=== PATIENT | female | born 1975 | race American Indian/Alaskan Native ===

== ENCOUNTER 2020-11-06 16:19 | Emergency (ER) | payer SELFPAY ==
[2020-11-06 16:28] VITALS: BP 135/95
--- NOTE | 2020-11-06 16:30 | Event Note ---
ED Screening Note Date of service: 11/06/20 Time: 16:30 ED Screening Note: Complains of worsening shortness of breath since being diagnosed with Covid Symptoms started 1 week ago per patient Tested for Covid on Sunday This initial assessment/diagnostic orders/clinical plan/treatment(s) is/are subject to change based on patients health status, clinical progression and re- assessment by fellow clinical providers in the ED. Further treatment and workup at subsequent clinical providers discretion. Patient/guardian urged not to elope from the ED as their condition may be serious if not clinically assessed and managed. Initial orders include: Labs Chest x-ray
[2020-11-06 17:11] LABS: Basophils % (Auto) 0.5 % (0.0-1.8); Hematocrit 45.8 % (30.3-42.9); Lymphocytes # (Auto) 1.8 K/mm3 (1.2-5.4); Lymphocytes % (Auto) 25.6 % (13.4-35.0); Mean Corpuscular HGB Conc 33 % (30-34); Mean Corpuscular Volume 81 fl (79-97); Monocytes # (Auto) 0.4 K/mm3 (0.0-0.8); Monocytes % (Auto) 5.8 % (0.0-7.3); Platelet Count 272 K/mm3 (140-440); Red Blood Count 5.65 M/mm3 (3.65-5.03); Red Cell Distribution Width 13.5 % (13.2-15.2)
[2020-11-06 17:32] LABS: Alanine Aminotransferase 89 units/L (7-56); Albumin 4.3 g/dL (3.9-5); Blood Urea Nitrogen 8 mg/dL (7-17); Calcium 9.6 mg/dL (8.4-10.2); Hemolysis Index 7
[2020-11-06 17:43] LABS: BUN/Creatinine Ratio 13
--- NOTE | 2020-11-06 18:10 | XRay Report ---
CHEST 2 VIEWS INDICATION: SOB, +covid. COMPARISON: None FINDINGS: Support devices: None. Heart: Within normal limits. Lungs: Multifocal patchy parenchymal changes are present both lungs. Pleura: No significant pleural effusion. No pneumothorax. Additional findings: None. IMPRESSION: 1. Multifocal airspace disease, pneumonia is a concern Signer Name: Mika Matos MD Signed: 11/06/2020 6:05 PM Workstation Name: [id number]
--- NOTE | 2020-11-07 01:23 | Emergency Department Report ---
ED Shortness of Breath HPI - General Chief Complaint: Dyspnea/Respdistress Stated Complaint: COVID + SOB Time Seen by Provider: 11/06/20 16:28 Source: patient Mode of arrival: Ambulatory Limitations: No Limitations - History of Present Illness Initial Comments: Patient is a 45-year-old -[place] female with a history of lcm-zkcohwh-kjgyxhkyu diabetes, asthma and hypertension who presents to the ED with complaint of acute onset persistent shortness of breath, nasal and sinus congestion, persistent dry cough with wheezing and chest tightness for the last 1 week. Patient states that she was diagnosed with COVID-19 viral infection 4 days ago and that initially her symptoms were mild but in the last 2 days, the shortness of breath has worsened especially when she lays down. Patient states that prior to arrival in the ED her shortness of breath was worse and the wheezing was constant especially with exertion. Patient states that she has not taken any medication at home but qikv-hcq-jssfjkp multivitamins. Patient denies chest pain, nausea, vomiting, diarrhea, abdominal pain, fever, chills, sore throat, lack of appetite, loss of taste or smell, dysuria, urinary frequency and urgency or change in vision, syncope or seizures. MD Complaint: shortness of breath, cough -: Sudden, week(s) (1) Radiation: other (none) Severity: severe Pain Scale: 2 Quality: dull, other (tightness of chest) Consistency: intermittent Improves With: nothing Worsens With: lying flat, exertion Known History Of: asthma, other (Covid-19 viral infection diagnosis recently) Context: recent URI, other (Covid-19 viral infection diagnosis) Associated Symptoms: denies other symptoms, cough, other (dyspnea) Treatments Prior to Arrival: none - Related Data Home Oxygen Therapy: No Previous Rx's Medication Instructions Recorded Last Taken Type Acetaminophen [Tylenol] 500 mg PO Q6HR PRN #30 tablet 11/07/20 Unknown Rx Albuterol Sulfate [Proventil Hfa] 1 - 2 puff IH Q6H PRN #1 hfa.aer.ad 11/07/20 Unknown Rx Azithromycin [Zithromax Z-KYMBERLY] 250 mg PO DAILY #6 tablet 11/07/20 Unknown Rx Benzonatate [Tessalon Perles] 100 mg PO Q8HR #30 capsule 11/07/20 Unknown Rx Cetirizine HCl [Zyrtec 10mg tab] 10 mg PO DAILY #30 tablet 11/07/20 Unknown Rx Dexamethasone 6 mg PO BID #10 tablet 11/07/20 Unknown Rx Allergies Allergy/AdvReac Type Severity Reaction Status Date / Time Penicillins Allergy Itching Verified 11/06/20 16:27 ED Review of Systems ROS: Stated complaint: COVID + SOB Other details as noted in HPI Constitutional: denies: chills, fever Eyes: denies: eye pain, eye discharge, vision change ENT: congestion. denies: ear pain, throat pain Respiratory: cough, shortness of breath, wheezing, other (Chest tightness) Cardiovascular: chest pain (Chest tightness). denies: palpitations Endocrine: no symptoms reported Gastrointestinal: denies: abdominal pain, nausea, vomiting, diarrhea Genitourinary: denies: urgency, dysuria, frequency, discharge Musculoskeletal: denies: back pain, joint swelling, arthralgia Skin: denies: rash, lesions Neurological: denies: headache, weakness, paresthesias Psychiatric: denies: anxiety, depression Hematological/Lymphatic: denies: easy bleeding, easy bruising ED Past Medical Hx - Past Medical History Previous Medical History?: Yes Hx Hypertension: Yes Hx Diabetes: Yes Hx Asthma: Yes - Medications Home Medications: Home Medications Medication Instructions Recorded Confirmed Last Taken Type Acetaminophen [Tylenol] 500 mg PO Q6HR PRN #30 tablet 11/07/20 Unknown Rx Albuterol Sulfate [Proventil Hfa] 1 - 2 puff IH Q6H PRN #1 hfa.aer.ad 11/07/20 Unknown Rx Azithromycin [Zithromax Z-KYMBERLY] 250 mg PO DAILY #6 tablet 11/07/20 Unknown Rx Benzonatate [Tessalon Perles] 100 mg PO Q8HR #30 capsule 11/07/20 Unknown Rx Cetirizine HCl [Zyrtec 10mg tab] 10 mg PO DAILY #30 tablet 11/07/20 Unknown Rx Dexamethasone 6 mg PO BID #10 tablet 11/07/20 Unknown Rx ED Physical Exam - General Limitations: No Limitations General appearance: alert, in no apparent distress - Head Head exam: Present: atraumatic, normocephalic, normal inspection - Eye Eye exam: Present: normal appearance, PERRL, EOMI Pupils: Present: normal accommodation - ENT ENT exam: Present: normal orophraynx, mucous membranes moist, TM's normal bilaterally, normal external ear exam, other (Grossly congested nasal passages) - Neck Neck exam: Present: normal inspection, full ROM - Respiratory Respiratory exam: Present: wheezes (Diffuse coarse wheezes throughout). Absent: respiratory distress, rales, stridor, chest wall tenderness, accessory muscle use, prolonged expiratory - Cardiovascular Cardiovascular Exam: Present: normal rhythm, tachycardia, normal heart sounds. Absent: systolic murmur, diastolic murmur, rubs, gallop - GI/Abdominal GI/Abdominal exam: Present: soft, normal bowel sounds. Absent: tenderness, guarding, hyperactive bowel sounds, hypoactive bowel sounds, mass - Extremities Exam Extremities exam: Present: normal inspection, full ROM, normal capillary refill - Back Exam Back exam: Present: normal inspection, full ROM. Absent: tenderness, CVA ten derness (R), CVA tenderness (L), muscle spasm, paraspinal tenderness, vertebral tenderness - Neurological Exam Neurological exam: Present: alert, oriented X3, CN II-XII intact, normal gait, reflexes normal - Psychiatric Psychiatric exam: Present: normal affect, normal mood - Skin Skin exam: Present: warm, dry, intact, normal color. Absent: rash ED Course Vital Signs 11/06/20 11/07/20 16:27 01:57 Temperature 98.6 F Pulse Rate 105 H Pulse Rate [ 128 H Bilateral Throughout] Respiratory 24 Rate Respiratory 20 Rate [Bilateral Throughout] Blood Pressure 135/95 [Right] O2 Sat by Pulse 97 Oximetry ED Medical Decision Making - Lab Data Result diagrams: 11/06/20 16:58 11/06/20 16:58 - Radiology Data Radiology results: report reviewed, image reviewed Findings [facility] [address] [place] [address] XRay Report Signed Patient: JOHANNE WHITESIDE MR#: [id number] : 1975 Acct:[id number] Age/Sex: 45 / F ADM Date: 11/06/20 Loc: ED Attending Dr: Ordering Physician: ROWAN JOHNSON Date of Service: 11/06/20 Procedure(s): XR chest routine 2V Accession Number(s): [id number] cc: ROWAN JOHNSON Fluoro Time In Minutes: CHEST 2 VIEWS INDICATION: SOB, +covid. COMPARISON: None FINDINGS: Support devices: None. Heart: Within normal limits. Lungs: Multifocal patchy parenchymal changes are present both lungs. Pleura: No significant pleural effusion. No pneumothorax. Additional findings: None. IMPRESSION: 1. Multifocal airspace disease, pneumonia is a concern Signer Name: Mika Matos MD Signed: 11/06/2020 6:05 PM Workstation Name: [id number] Transcribed By: INA Dictated By: Mika Matos MD Electronically Authenticated By: Mika Matos MD Signed Date/Time: 11/06/201804 DD/ 03 TD/TT: - Medical Decision Making This is a 45-year-old -[place] female with a history of mjc-xlghojg-tntbloiiq diabetes, asthma and hypertension who presents to the ED with complaint of acute onset persistent shortness of breath, nasal and sinus congestion, persistent dry cough with wheezing and chest tightness for the last 1 week. Patient states that she was diagnosed with COVID-19 viral infection 4 days ago and that initially her symptoms were mild but in the last 2 days, the shortness of breath has worsened especially when she lays down. Patient states that prior to arrival in the ED her shortness of breath was worse and the wheezing was constant especially with exertion. Patient states that she has not taken any medication at home but xzzu-jzf-leenjbc multivitamins. In the ED, patient is alert and oriented x3 and is not in distress. Patient received DuoNeb treatment in the ED and Decadron IV injection. Lab test results were reviewed and are remarkable for AST of 86 and ALT of 89, hyperglycemia of 322 mg/dL and mild hyponatremia 135 mmol/L. Chest x-ray shows multifocal airspace disease, pneumonia is a concern. Patient received Rocephin 1 g IV x1 and azithromycin 500 mg p.o. x1. On reevaluation, patient's wheezing resolved and tachycardia improved significantly. Patient was ambulated in the ED and the oxygen saturation remained in the range of 97% to 99% in room air. Patient was discharged home on medications and advised to continue to self quarantine for 10 days and thereafter follow-up with her primary care physician for reevaluation. Patient was otherwise advised return to the ED immediately if symptoms get worse. - Differential Diagnosis Pneumonia; asthma; bronchitis; COVID-19; hypoxia; ACS Critical care attestation.: If time is entered above; I have spent that time in minutes in the direct care of this critically ill patient, excluding procedure time. ED Disposition Clinical Impression: Pneumonia due to 2019 novel coronavirus, Shortness of breath, Acute bronchitis due to 2019 novel coronavirus Community acquired pneumonia Qualifiers: Laterality: unspecified laterality Qualified Code(s): J18.9 - Pneumonia, unspecified organism Disposition: TO HOME OR SELFCARE Is pt being admited?: No Does the pt Need Aspirin: No Condition: Stable Instructions: Bacterial Pneumonia (ED), Acute Bronchitis (ED), Shortness of Breath, Adult, Mhpi-[id number], Acute Bronchitis, Adult, Sdyo-fe-Uxeb, Community- Acquired Pneumonia, Adult, Huzo-hs-Fxrw, Cough, Adult, Vrya-[id number] Additional Instructions: Take medication with food, drink plenty of fluids and self quarantine at home for 10 days. Return to the ED immediately if symptoms get worse. Otherwise follow-up with your primary care physician after 10 days for reevaluation. Prescriptions: Acetaminophen [Tylenol] 500 mg PO Q6HR PRN #30 tablet PRN Reason: Pain , Severe (7-10) Dexamethasone 6 mg PO BID #10 tablet Albuterol Sulfate [Proventil Hfa] 1 - 2 puff IH Q6H PRN #1 hfa.aer.ad PRN Reason: Dyspnea Benzonatate [Tessalon Perles] 100 mg PO Q8HR #30 capsule Azithromycin [Zithromax Z-KYMBERLY] 250 mg PO DAILY #6 tablet Cetirizine HCl [Zyrtec 10mg tab] 10 mg PO DAILY #30 tablet Referrals: [facility] [Provider Group] - 3-5 Days Time of Disposition: 05:39 Print Language: MONGOLIAN
[2020-11-07] MEDS ORDERED: AZITHROMYCIN 250 MG TAB PO ONE (01:28)
[2020-11-07] MEDS ORDERED: dexAMETHasone 20 MG/5 ML VIAL IV ONE (01:28)
[2020-11-07] MEDS ORDERED: IPRATROPIUM/ALBUTEROL SULFATE 3 ML AMPUL.NEB IH ONE (01:28)
[2020-11-07] MEDS ORDERED: cefTRIAXone/NS 1 GM/50 ML 1 GM/50 ML BAG IV ONE (01:28)
[2020-11-07] MEDS ORDERED: ACETAMINOPHEN 500 MG TAB PO ONE (01:28)
[2020-11-07] MEDS ORDERED: ALBUTEROL 2.5 MG/3 ML NEBU IH ONE (01:29)
[2020-11-07] MEDS ORDERED: SODIUM CHLORIDE 0.9% 1000 ML 1,000 ML IV ONE (02:29)
== END 2020-11-07 06:50 | disposition home or self-care (01) ==
LOC: EDBD → ED 16:19
DX: J15.8 Pneumonia due to other specified bacteria (principal); U07.1 COVID-19; J20.8 Acute bronchitis due to other specified organisms; I10 Essential (primary) hypertension; E11.9 Type 2 diabetes mellitus without complications; Z79.899 Other long term (current) drug therapy; Z88.0 Allergy status to penicillin
CPT/HCPCS: 36415; 71046; 80053; 85025; 94640; 96361; 96365; 96375; 99284; J0696; J1100; J7030; 94644

== ENCOUNTER 2020-11-13 15:17 | Emergency (ER) | payer SELFPAY | END 2020-11-13 16:12 | LOC: ED 15:17 | DX: R73.9 Hyperglycemia, unspecified (principal); Z53.21 Procedure and treatment not carried out due to patient leaving prior to being seen by health care provider ==